=== PATIENT | male | born 1950 | race Caucasian/White ===

== ENCOUNTER → 2018-02-21 | Outpatient (CLI) | payer MEDICARE ==
[2018-02-21 15:01] LABS: Blood Urea Nitrogen 20 mg/dL (9-20)
--- NOTE | 2018-02-22 02:01 | CT ---
EXAMINATION TYPE: CT chest w con DATE OF EXAM: 02/21/2018 COMPARISON: None HISTORY: 67-year-old male chronic cough, cough for months. TECHNIQUE: Contiguous axial scanning of the chest after the administration of 100 mL of Isovue 300. Coronal/sagittal reconstructions performed. CT DLP: 659mGycm. Automatic exposure control utilized for a dose reduction. FINDINGS: Heart is normal size without pericardial effusion. Mild atherosclerotic arch calcifications. Borderline ectasia upper descending thoracic aorta and 3.0 cm. Scattered nonenlarged mediastinal lymph nodes. No thoracic lymphadenopathy by CT size criteria. No consolidation or pleural effusion. Tiny hiatal hernia. Small peripheral vascular blush anterior left hepatic lobe probably represents a n area of vascular shunting. Mild diffuse thickening of the left adrenal gland without discrete nodul arity. Bones: Mild degenerative disc disease throughout. Facet arthropathy C6/C7 with grade 1 anterolisthesi s. IMPRESSION: No acute pulmonary process. Tiny hiatal hernia.
== END | disposition home or self-care (01) ==
LOC: RADCTMAIN 14:31
PROVIDERS: ATTEND Family Medicine
DX: K44.9 Diaphragmatic hernia without obstruction or gangrene (principal); R05 Cough
CPT/HCPCS: 82565; 84520; 71260; 36415; Q9967

== ENCOUNTER → 2022-06-20 | Outpatient (CLI) | payer MEDICARE ==
--- NOTE | 2022-06-21 08:39 | US ---
EXAMINATION TYPE: US prostate transrectal DATE OF EXAM: 06/20/2022 COMPARISON: NONE CLINICAL HISTORY: R97.2 ELEVATED PROSTATE ANTIGEN. This examination was performed using the transrectal probe. EXAM MEASUREMENTS: Gland Size: 5.4 x 3.6 x 5.4cm Volume: 54.96 Predicted PSA: 6.59 Actual PSA (if available):5.59 (8-18-22) IMPRESSION: No obvious mass seen in peripheral zone, heterogeneous central zone. Prostate glandular e nlargement. Predicted PSA = volume x 0.12 ng/ml Calculated Volume = 0.5236 x L x W x H
== END | disposition home or self-care (01) ==
LOC: RADUSWWP 09:36
PROVIDERS: ATTEND Family Medicine
DX: N40.0 Benign prostatic hyperplasia without lower urinary tract symptoms (principal); R97.20 Elevated prostate specific antigen [PSA]
CPT/HCPCS: 76872

== ENCOUNTER → 2024-01-18 | Outpatient (CLI) | payer MEDICARE ==
--- NOTE | 2024-01-18 10:47 | XR ---
EXAMINATION TYPE: XR Hip Complete LT DATE OF EXAM: 01/18/2024 8:26 AM CLINICAL INDICATION:Male, 73 years old with history of M25.552 PAIN IN LT HIP; [facility] COMPARISON: None. TECHNIQUE: XR Hip Complete LT; hip was examined in the frontal and lateral projections FINDINGS: No evidence for acute process, joint dislocation or significant soft tissue swelling. Osteo phyte formation of the superior acetabulum of the hip. There is mild joint space narrowing. IMPRESSION: 1. No evidence for acute process. 2. Mild hip osteoarthrosis.
== END | disposition home or self-care (01) ==
LOC: LABWHC1 08:09
PROVIDERS: ATTEND Family Medicine
DX: M16.12 Unilateral primary osteoarthritis, left hip (principal)
CPT/HCPCS: 73502